=== PATIENT | female | born 1940 | race Caucasian/White ===

== ENCOUNTER 2023-10-25 00:07 | Inpatient (IN) ==
[2023-10-25 02:32] LABS: ABS Basophils 0.1 10^3/uL (0.0-0.1); ABS Lymphocytes 1.3 10^3/uL (1.0-4.8); ABS Monocytes 0.9 10^3/uL (0.0-0.9); ABS Neutrophils 5.4 10^3/uL (1.5-7.6); ABS Nucleated RBC 0.01 10^3/ul; Eosinophil % 11.4 %; Hematocrit 30.9 % (35-45); Hemoglobin 10.8 g/dL (11.5-14.3); Lymphocyte % 15.4 %; Mean Corpuscular Hemoglobin 31.3 pg (27-33); Mean Corpuscular Hgb Conc 34.9 g/dL (31-36); Mean Corpuscular Volume 89.7 fL (80-97); Mean Platelet Volume 5.8 fL (7.5-11.2); Nucleated Red Blood Cells % 0.1 %/100WBC (0.0-0.8); Platelet Count 496 10^3/uL (150-450); Red Blood Count 3.44 10^6/uL (3.63-4.92); Red Cell Distribution Width 12.1 % (12-17); White Blood Count 8.7 10^3/uL (3.8-11.8)
[2023-10-25 03:29] LABS: Calcium 8.8 mg/dL (8.6-10.3); Creatinine, Serum 0.37 mg/dL (0.51-0.95); Potassium 4.4 mmol/L (3.5-5.0); eGFR CKD-EPI 99.4 (>60)
[2023-10-25 03:46] LABS: Magnesium 1.5 mg/dL (1.9-2.7)
[2023-10-25] MEDS: Magnesium Sulfate 2 gm BAG 2 GM/50 ML BAG IVPB ONE ×2 (04:23→19:45)
[2023-10-25] MEDS: NS 0.9% 1000 ml BAG 1,000 ML IV SCH ×4 (04:24→19:55)
[2023-10-25 06:58] LABS: Urine Appearance Clear; Urine Bilirubin Negative (Negative); Urine Blood Negative (Negative); Urine Color Light-Yellow; Urine Glucose Negative (Negative); Urine Ketones 2+ (Negative); Urine Nitrite Negative (Negative); Urine Protein Negative (Negative); Urine Specific Gravity 1.017 (1.002-1.030); Urine Urobilinogen Negative (Negative); Urine pH 5.5 (5.0-8.0)
[2023-10-25 07:29] LABS: Urine Osmo 511 mOsm/kg (150-1150)
[2023-10-25] MEDS: ceFAZolin 1 GM ADVAN 1 GM in NS 0.9% 50 ML 50 ML IVPB SCH (08:12)
[2023-10-25] MEDS: Heparin 5000 UNITS/ML 1 mL VIAL SUBCUT SCH (08:16)
[2023-10-25] MEDS: Acetaminophen IV 1 GM/100ML 1,000 MG/100 ML BAG IV ONE (09:42)
[2023-10-25 10:55] LABS: Calcium 8.2 mg/dL (8.6-10.3); Creatinine, Serum 0.34 mg/dL (0.51-0.95); Magnesium 1.9 mg/dL (1.9-2.7); Potassium 4.1 mmol/L (3.5-5.0); eGFR CKD-EPI 101.4 (>60)
[2023-10-25] MEDS: HYDROmorphone 0.5 MG/0.5 ML SYRINGE IV SLOW PU PRN (13:08)
[2023-10-25 14:54] LABS: Calcium 7.8 mg/dL (8.6-10.3); Creatinine, Serum 0.3 mg/dL (0.51-0.95); eGFR CKD-EPI 104.5 (>60)
[2023-10-25] MEDS: Mometasone 220 MCG MDI INH SCH (15:57)
[2023-10-25 18:55] LABS: Calcium 7.8 mg/dL (8.6-10.3); Creatinine, Serum 0.34 mg/dL (0.51-0.95); Potassium 4.3 mmol/L (3.5-5.0); eGFR CKD-EPI 101.4 (>60)
[2023-10-25] MEDS: HYDROcodone/ACETAMIN 5/325 mg TAB PO PRN (19:42)
[2023-10-25] MEDS: Lactated Ringers 1000 ml BAG 500 ML IV ONE (22:53)
[2023-10-25 23:22] LABS: Calcium 7.7 mg/dL (8.6-10.3); Creatinine, Serum 0.34 mg/dL (0.51-0.95); Potassium 4.3 mmol/L (3.5-5.0); eGFR CKD-EPI 101.4 (>60)
[2023-10-26 00:01] LABS: Urine Osmo 671 mOsm/kg (150-1150)
[2023-10-26 03:01] LABS: Calcium 7.6 mg/dL (8.6-10.3); Creatinine, Serum 0.36 mg/dL (0.51-0.95); Potassium 4.2 mmol/L (3.5-5.0)
[2023-10-26] MEDS: Fluticasone NASAL SPRAY 50MCG 16 gm SPRAY BTL INTRANASAL SCH (03:49)
[2023-10-26] MEDS: ACETAMINOPHEN IV ONE (03:49)
[2023-10-26 05:02] LABS: ABS Eosinophils 0.7 10^3/uL (0.0-0.5); ABS Monocytes 0.7 10^3/uL (0.0-0.9); ABS Neutrophils 3.2 10^3/uL (1.5-7.6); Hematocrit 26.8 % (35-45); Hemoglobin 9.4 g/dL (11.5-14.3); Lymphocyte % 18.2 %; Mean Corpuscular Hemoglobin 31.3 pg (27-33); Mean Corpuscular Hgb Conc 34.9 g/dL (31-36); Mean Corpuscular Volume 89.6 fL (80-97); Mean Platelet Volume 5.8 fL (7.5-11.2); Nucleated Red Blood Cells % 0.1 %/100WBC (0.0-0.8); Platelet Count 432 10^3/uL (150-450); Red Blood Count 2.99 10^6/uL (3.63-4.92); Red Cell Distribution Width 12.3 % (12-17); White Blood Count 5.6 10^3/uL (3.8-11.8)
[2023-10-26 05:50] LABS: Calcium 7.5 mg/dL (8.6-10.3); Creatinine, Serum 0.34 mg/dL (0.51-0.95); Potassium 4.3 mmol/L (3.5-5.0); eGFR CKD-EPI 101.4 (>60)
[2023-10-26 08:55] LABS: Magnesium 2.2 mg/dL (1.9-2.7); Phosphorus 3.1 mg/dL (2.5-5.0)
[2023-10-26] MEDS: HYDROcodone/ACETAMIN 5/325 mg TAB PO SCH (09:17)
[2023-10-26 10:20] LABS: Calcium 7.5 mg/dL (8.6-10.3); Creatinine, Serum 0.34 mg/dL (0.51-0.95); HDL Cholesterol 41.3 mg/dL; Potassium 4.3 mmol/L (3.5-5.0); eGFR CKD-EPI 101.4 (>60)
[2023-10-26 10:30] LABS: TSH Ultra Thyroid Stim Horm 2.55 mcIU/mL (0.34-5.60)
[2023-10-26 14:22] LABS: Calcium 7.5 mg/dL (8.6-10.3); Creatinine, Serum 0.37 mg/dL (0.51-0.95); Potassium 4.5 mmol/L (3.5-5.0); eGFR CKD-EPI 99.4 (>60)
[2023-10-26] MEDS: Heparin 5000 UNITS/ML 1 mL VIAL SUBCUT SCH (16:28)
[2023-10-26 18:45] LABS: Calcium 7.4 mg/dL (8.6-10.3); Creatinine, Serum 0.41 mg/dL (0.51-0.95); Magnesium 1.7 mg/dL (1.9-2.7); Phosphorus 2.4 mg/dL (2.5-5.0); Potassium 4.1 mmol/L (3.5-5.0)
[2023-10-26 19:00] LABS: High Sensitivity Troponin 1 Hr 23 pg/mL (<15)
[2023-10-26 20:10] LABS: High Sensitivity Troponin 3 Hr 19 pg/mL (<15)
[2023-10-26] MEDS: Heparin 5000 UNITS/ML 1 mL VIAL SUBCUT ONE (23:27)
[2023-10-26 23:42] LABS: Calcium 7.9 mg/dL (8.6-10.3); Creatinine, Serum 0.4 mg/dL (0.51-0.95); Potassium 4.5 mmol/L (3.5-5.0); eGFR CKD-EPI 97.5 (>60)
[2023-10-27 05:29] LABS: ABS Eosinophils 0.8 10^3/uL (0.0-0.5); ABS Lymphocytes 1.2 10^3/uL (1.0-4.8); ABS Monocytes 0.7 10^3/uL (0.0-0.9); ABS Neutrophils 3.3 10^3/uL (1.5-7.6); Eosinophil % 13.2 %; Hematocrit 28.2 % (35-45); Lymphocyte % 19.7 %; Mean Corpuscular Hemoglobin 31.8 pg (27-33); Mean Corpuscular Hgb Conc 35.4 g/dL (31-36); Mean Corpuscular Volume 89.8 fL (80-97); Nucleated Red Blood Cells % 0.1 %/100WBC (0.0-0.8); Platelet Count 475 10^3/uL (150-450); Red Blood Count 3.14 10^6/uL (3.63-4.92); Red Cell Distribution Width 12.3 % (12-17)
[2023-10-27 06:11] LABS: Calcium 7.6 mg/dL (8.6-10.3); Creatinine, Serum 0.37 mg/dL (0.51-0.95); Potassium 4.5 mmol/L (3.5-5.0); eGFR CKD-EPI 99.4 (>60)
[2023-10-27 08:18] LABS: Magnesium 1.7 mg/dL (1.9-2.7); Phosphorus 2.5 mg/dL (2.5-5.0)
[2023-10-27] MEDS: Potassium EFFERVES 25 meq TAB PO SCH (08:20)
[2023-10-27] MEDS: Magnesium Sulfate 2 gm BAG 2 GM/50 ML BAG IVPB ONE (08:23)
[2023-10-27] MEDS: Ondansetron 4 mg VIAL 2 MG/ML 2 ml VIAL IV PRN (10:19)
[2023-10-27 10:43] LABS: Calcium 7.7 mg/dL (8.6-10.3); Creatinine, Serum 0.35 mg/dL (0.51-0.95); Potassium 4.4 mmol/L (3.5-5.0); eGFR CKD-EPI 100.7 (>60)
[2023-10-27] MEDS ORDERED: HYDROcodone/ACETAMIN 5/325 mg TAB PO PRN (12:06)
[2023-10-27] MEDS: Heparin 5000 UNITS/ML 1 mL VIAL SUBCUT SCH (12:27)
[2023-10-27] MEDS ORDERED: Vancomycin per Pharmacy 1 EA NOTE FOLLOW UP PRN (16:28)
[2023-10-27] MEDS: Acetaminophen IV 1 GM/100ML 1,000 MG/100 ML BAG IV PRN (16:32)
[2023-10-27 17:06] LABS: Albumin 2.4 g/dL (3.2-5.2); Albumin/Globulin Ratio 1.1 (1-3); Direct Bilirubin 0.1 mg/dL (0.03-0.18); Globulin 2.1 g/dL (2-4); Indirect Bilirubin 0.3 mg/dL (0.3-1.0); Total Bilirubin 0.4 mg/dL (0.2-1.0); Total Protein 4.5 g/dL (6.4-8.9)
[2023-10-27 17:35] LABS: Urine Appearance Clear; Urine Bilirubin Negative (Negative); Urine Blood 2+ (Negative); Urine Color Light-Yellow; Urine Glucose Negative (Negative); Urine Ketones 2+ (Negative); Urine Nitrite Negative (Negative); Urine Protein Trace (Negative); Urine Specific Gravity 1.021 (1.002-1.030); Urine Urobilinogen Negative (Negative); Urine pH 5.5 (5.0-8.0)
[2023-10-27 17:38] LABS: Urine Bacteria Absent /HPF (Absent); Urine Red Blood Cell 3+(>10/hpf) /HPF (0-Trace); Urine Squamous Epithelial Cell Present /HPF (Absent); Urine White Blood Cell Trace(0-5/hpf) /HPF (0-Trace)
[2023-10-27] MEDS: Cefepime 1 GM in Dextrose 1 GM/50 ML BAG IV SCH (17:52)
[2023-10-27] MEDS: Vancomycin 1,000 MG in NS 0.9% 250 ml 250 ML IVPB ONE (17:57)
[2023-10-27] MEDS ORDERED: Cefepime ADVAN 1 GM in NS 0.9% 50 ML 50 ML IVPB SCH (18:00)
[2023-10-27] MEDS: Heparin 5000 UNITS/ML 1 mL VIAL SUBCUT ONE (20:15)
[2023-10-27 21:02] LABS: Albumin 2.4 g/dL (3.2-5.2); Albumin/Globulin Ratio 1.1 (1-3); Calcium 7.8 mg/dL (8.6-10.3); Creatinine, Serum 0.34 mg/dL (0.51-0.95); Globulin 2.2 g/dL (2-4); Potassium 4.6 mmol/L (3.5-5.0); Total Bilirubin 0.4 mg/dL (0.2-1.0); Total Protein 4.6 g/dL (6.4-8.9); eGFR CKD-EPI 101.4 (>60)
[2023-10-27] MEDS: Vancomycin 1,500 MG in NS 0.9% 250 ml 250 ML IVPB SCH (21:25)
[2023-10-28 06:30] LABS: ABS Eosinophils 0.9 10^3/uL (0.0-0.5); ABS Monocytes 0.8 10^3/uL (0.0-0.9); Eosinophil % 13.9 %; Hematocrit 29.3 % (35-45); Hemoglobin 10.2 g/dL (11.5-14.3); Lymphocyte % 15.1 %; Mean Corpuscular Hemoglobin 31.3 pg (27-33); Mean Corpuscular Hgb Conc 34.7 g/dL (31-36); Mean Corpuscular Volume 90.2 fL (80-97); Mean Platelet Volume 5.6 fL (7.5-11.2); Nucleated Red Blood Cells % 0.1 %/100WBC (0.0-0.8); Platelet Count 496 10^3/uL (150-450); Red Blood Count 3.25 10^6/uL (3.63-4.92); White Blood Count 6.8 10^3/uL (3.8-11.8)
[2023-10-28 07:55] LABS: Creatinine, Serum 0.35 mg/dL (0.51-0.95); Magnesium 1.6 mg/dL (1.9-2.7); Phosphorus 2.3 mg/dL (2.5-5.0); Potassium 4.6 mmol/L (3.5-5.0); Vancomycin Trough 5.7 mcg/mL; eGFR CKD-EPI 100.7 (>60)
[2023-10-28] MEDS: Vancomycin 1,500 MG in NS 0.9% 250 ml 250 ML IVPB SCH (08:26)
[2023-10-28] MEDS: Magnesium Sulfate 2 gm BAG 2 GM/50 ML BAG IV ONE (10:10)
[2023-10-28 10:15] LABS: C Reactive Protein 163.02 mg/L (<8.01)
[2023-10-28 10:55] LABS: Erythrocyte Sed Rate 70 mm/Hr (0-29)
[2023-10-28] MEDS: Pantoprazole VIAL 40 MG VIAL IV SCH (12:19)
[2023-10-28 13:55] LABS: Body Fluid Appearance Cloudy; Body Fluid Color Amber; Body Fluid Source Synovial Fluid
[2023-10-28 14:24] LABS: Body Fluid Total Nucleated 793 /mcL
[2023-10-28 14:54] LABS: Creatinine, Serum 0.3 mg/dL (0.51-0.95); Potassium 4.4 mmol/L (3.5-5.0); eGFR CKD-EPI 104.5 (>60)
[2023-10-28 14:57] LABS: Body Fluid Mono 131 %
[2023-10-28] MEDS: Enoxaparin 40 MG/0.4 ML SYR SUBCUT SCH (15:28)
[2023-10-28 15:46] LABS: Body Fluid Total Cells Counted 200
[2023-10-28] MEDS ORDERED: Tocilizumab 200 MG/10 ML 10 ml VIAL SCH (20:00)
[2023-10-29 05:38] LABS: ABS Eosinophils 1.3 10^3/uL (0.0-0.5); ABS Monocytes 0.6 10^3/uL (0.0-0.9); ABS Neutrophils 2.6 10^3/uL (1.5-7.6); Hemoglobin 10.2 g/dL (11.5-14.3); Lymphocyte % 17.5 %; Mean Corpuscular Hemoglobin 31.5 pg (27-33); Mean Corpuscular Volume 90.2 fL (80-97); Mean Platelet Volume 5.9 fL (7.5-11.2); Platelet Count 512 10^3/uL (150-450); Red Blood Count 3.22 10^6/uL (3.63-4.92); Red Cell Distribution Width 12.2 % (12-17); White Blood Count 5.4 10^3/uL (3.8-11.8)
[2023-10-29 05:52] LABS: Calcium 8.4 mg/dL (8.6-10.3); Creatinine, Serum 0.3 mg/dL (0.51-0.95); Magnesium 1.6 mg/dL (1.9-2.7); Potassium 4.4 mmol/L (3.5-5.0); Vancomycin Trough 14.1 mcg/mL; eGFR CKD-EPI 104.5 (>60)
[2023-10-29] MEDS: Magnesium Sulfate 2 gm BAG 2 GM/50 ML BAG IVPB ONE (08:03)
[2023-10-29] MEDS: Magnesium Sulfate IV 1GM/100ML 1 GM/100 ML BAG IV ONE (09:35)
[2023-10-29 16:25] LABS: Anion Gap 4 mmol/L (2-16); Blood Urea Nitrogen 7 mg/dL (6-24); CO2 Carbon Dioxide 24 mmol/L (22-32); Calcium 8.3 mg/dL (8.6-10.3); Chloride 98 mmol/L (101-111); Creatinine, Serum < 0.30 mg/dL (0.51-0.95); Glucose 97 mg/dL (70-100); Potassium 4.5 mmol/L (3.5-5.0); Sodium 126 mmol/L (135-145); eGFR CKD-EPI 104.5 (>60)
[2023-10-30 05:46] LABS: ABS Eosinophils 1.4 10^3/uL (0.0-0.5); ABS Lymphocytes 1.2 10^3/uL (1.0-4.8); ABS Monocytes 0.7 10^3/uL (0.0-0.9); ABS Neutrophils 3.4 10^3/uL (1.5-7.6); ABS Nucleated RBC 0.01 10^3/ul; Eosinophil % 20.8 %; Hemoglobin 10.9 g/dL (11.5-14.3); Mean Corpuscular Hemoglobin 31.4 pg (27-33); Mean Corpuscular Hgb Conc 35.3 g/dL (31-36); Mean Corpuscular Volume 89.1 fL (80-97); Mean Platelet Volume 5.9 fL (7.5-11.2); Nucleated Red Blood Cells % 0.1 %/100WBC (0.0-0.8); Platelet Count 607 10^3/uL (150-450); Red Blood Count 3.48 10^6/uL (3.63-4.92); Red Cell Distribution Width 12.1 % (12-17); White Blood Count 6.7 10^3/uL (3.8-11.8)
[2023-10-30] MEDS: Vancomycin Trough Check NOTE FOLLOW UP ONE (06:09)
[2023-10-30 06:25] LABS: Calcium 8.2 mg/dL (8.6-10.3); Creatinine, Serum 0.32 mg/dL (0.51-0.95); Magnesium 1.6 mg/dL (1.9-2.7); Potassium 4.2 mmol/L (3.5-5.0); eGFR CKD-EPI 102.9 (>60)
[2023-10-30] MEDS: Magnesium Sulf 4 GM/100 ML IV 4,000 MG/100 ML BAG IVPB ONE (08:38)
[2023-10-30] MEDS: NS 0.9% 1000 ml BAG 1,000 ML IV ONE (15:39)
[2023-10-30] MEDS: ceFAZolin 1 GM in Dextrose 1 GM/50 ML BAG IVPB SCH (16:11)
[2023-10-30] MEDS: Ampicillin IV 2 GM in NS 0.9% 100 ml BAG 100 ML IVPB ONE (16:44)
[2023-10-30] MEDS ORDERED: Ampicillin IV 2 GM in NS 0.9% 100 ml BAG 100 ML IVPB SCH (17:00)
[2023-10-30] MEDS ORDERED: Vancomycin per Pharmacy 1 EA NOTE FOLLOW UP SCH (17:00)
[2023-10-30] MEDS: cefTRIAXone 2 gm/50 mL D5W 2 GM/50 ML BAG IV ONE (17:12)
[2023-10-30] MEDS: Ampicillin ADVAN 2 GM in NS 0.9% 100 ML 100 ML IVPB SCH (17:20)
[2023-10-30 17:27] LABS: Urine Appearance Extra Turbid; Urine Bilirubin Negative (Negative); Urine Blood Negative (Negative); Urine Glucose Negative (Negative); Urine Ketones 2+ (Negative); Urine Nitrite Negative (Negative); Urine Protein Trace (Negative); Urine Specific Gravity 1.015 (1.002-1.030); Urine Urobilinogen Negative (Negative); Urine pH 5.5 (5.0-8.0)
[2023-10-30] MEDS: Acyclovir IV 520 MG in NS 0.9% 100 ml BAG 100 ML IVPB SCH (17:36)
[2023-10-30] MEDS: cefTRIAXone 2 gm/50 mL D5W 2 GM/50 ML BAG IV SCH (18:19)
[2023-10-30] MEDS: Vancomycin 1,500 MG in NS 0.9% 250 ml 250 ML IVPB SCH (18:27)
[2023-10-30 19:13] LABS: Urine Color Light-Yellow
[2023-10-31] MEDS: Albuterol/Ipratropium NEB.SOL (2.5/0.5 MG) 3 ML NEB.SOLN INH ONE (01:05)
[2023-10-31 06:48] LABS: ABS Eosinophils 1.5 10^3/uL (0.0-0.5); ABS Lymphocytes 0.9 10^3/uL (1.0-4.8); ABS Monocytes 0.7 10^3/uL (0.0-0.9); ABS Neutrophils 3.3 10^3/uL (1.5-7.6); Eosinophil % 23.4 %; Hematocrit 28.8 % (35-45); Hemoglobin 9.9 g/dL (11.5-14.3); Lymphocyte % 14.3 %; Mean Corpuscular Hemoglobin 30.6 pg (27-33); Mean Corpuscular Hgb Conc 34.3 g/dL (31-36); Mean Corpuscular Volume 89.3 fL (80-97); Mean Platelet Volume 5.9 fL (7.5-11.2); Platelet Count 546 10^3/uL (150-450); Red Blood Count 3.23 10^6/uL (3.63-4.92); Red Cell Distribution Width 12.2 % (12-17); White Blood Count 6.4 10^3/uL (3.8-11.8)
[2023-10-31 08:34] LABS: Albumin 2.3 g/dL (3.2-5.2); Albumin/Globulin Ratio 1.2 (1-3); Calcium 8.1 mg/dL (8.6-10.3); Creatinine, Serum 0.36 mg/dL (0.51-0.95); Total Bilirubin 0.4 mg/dL (0.2-1.0); Total Protein 4.3 g/dL (6.4-8.9)
[2023-10-31 09:01] LABS: Body Fluid Source Cerebral Spinal
[2023-10-31 09:20] LABS: CSF Glucose 58 mg/dL (40-70)
[2023-10-31 09:36] LABS: CSF Body Fluid WBC 0 /mcL
[2023-10-31 10:09] LABS: Body Fluid Appearance Clear; Body Fluid Color Colorless; Body Fluid Mono 8 %; Body Fluid Total Cells Counted 13
[2023-10-31 10:10] LABS: CSF Tube # 4
[2023-10-31] MEDS: Senna TAB 8.6 mg TAB PO PRN (12:32)
[2023-10-31] MEDS: Polyethylene Glycol 3350 17 GM PACKET PO PRN (12:32)
[2023-10-31] MEDS: ceFAZolin 2 GM PREMIX 2 GM/50 ML BAG IV SCH (13:49)
[2023-10-31] MEDS ORDERED: ceFAZolin 2 GM in NS PREMIX 2 GM/100 ML BAG IVPB SCH (14:00)
[2023-10-31] MEDS: Benzocaine/Menthol LOZ PO PRN (23:19)
[2023-11-01] MEDS: Albuterol/Ipratropium NEB.SOL (2.5/0.5 MG) 3 ML NEB.SOLN INH ONE (03:07)
[2023-11-01] MEDS ORDERED: Vancomycin Trough Check NOTE FOLLOW UP ONE ×2 (06:00)
[2023-11-01 06:33] LABS: ABS Eosinophils 1.4 10^3/uL (0.0-0.5); ABS Monocytes 0.7 10^3/uL (0.0-0.9); ABS Neutrophils 3.2 10^3/uL (1.5-7.6); Eosinophil % 22.6 %; Hematocrit 27.7 % (35-45); Hemoglobin 9.5 g/dL (11.5-14.3); Lymphocyte % 15.4 %; Mean Corpuscular Hemoglobin 31.1 pg (27-33); Mean Corpuscular Hgb Conc 34.5 g/dL (31-36); Mean Corpuscular Volume 90.2 fL (80-97); Platelet Count 530 10^3/uL (150-450); Red Blood Count 3.07 10^6/uL (3.63-4.92); Red Cell Distribution Width 12.3 % (12-17); White Blood Count 6.4 10^3/uL (3.8-11.8)
[2023-11-01 06:55] LABS: Calcium 8.4 mg/dL (8.6-10.3); Creatinine, Serum 0.36 mg/dL (0.51-0.95)
[2023-11-01] MEDS: Furosemide 40 mg/4 ml IV VIAL IV SLOW PU ONE (12:17)
[2023-11-02] MEDS: Albuterol/Ipratropium NEB.SOL (2.5/0.5 MG) 3 ML NEB.SOLN INH ONE (06:56)
[2023-11-02 09:09] LABS: Calcium 8.8 mg/dL (8.6-10.3); Creatinine, Serum 0.39 mg/dL (0.51-0.95); Potassium 3.7 mmol/L (3.5-5.0); eGFR CKD-EPI 98.1 (>60)
[2023-11-02] MEDS: KCL 20 MEQ/100 ML IVPREMIX 20 MEQ/100 ML BAG IV SCH (12:30)
[2023-11-02] MEDS: Furosemide 40 mg/4 ml IV VIAL IV ONE (12:33)
[2023-11-02 14:10] LABS: Magnesium 1.4 mg/dL (1.9-2.7)
[2023-11-02 15:17] LABS: CSF VDRL Negative (Negative)
[2023-11-02] MEDS: Magnesium Sulfate 2 gm BAG 2 GM/50 ML BAG IVPB ONE (16:44)
[2023-11-02 18:09] LABS: HSV 1 PCR, CSF Negative (Negative); HSV 2 PCR, CSF Negative (Negative)
[2023-11-02 20:05] LABS: Calcium 8.8 mg/dL (8.6-10.3); Creatinine, Serum 0.44 mg/dL (0.51-0.95); Magnesium 1.9 mg/dL (1.9-2.7); Potassium 4.2 mmol/L (3.5-5.0); eGFR CKD-EPI 95.3 (>60)
[2023-11-02] MEDS: Albuterol HFA INHALER 8 gm MDI INH PRN (21:58)
[2023-11-03] MEDS: Magnesium Sulfate IV 1GM/100ML 1 GM/100 ML BAG IV ONE (00:23)
[2023-11-03] MEDS: ceFAZolin 2 GM PREMIX 2 GM/50 ML BAG IV SCH (01:08)
[2023-11-03] MEDS: Acetaminophen IV 1 GM/100ML 1,000 MG/100 ML BAG IV PRN (06:06)
[2023-11-03 06:31] LABS: Hematocrit 28.1 % (35-45); Hemoglobin 9.7 g/dL (11.5-14.3); Mean Corpuscular Hgb Conc 34.4 g/dL (31-36); Mean Corpuscular Volume 89.9 fL (80-97); Mean Platelet Volume 5.7 fL (7.5-11.2); Platelet Count 559 10^3/uL (150-450); Red Blood Count 3.13 10^6/uL (3.63-4.92); Red Cell Distribution Width 12.4 % (12-17)
[2023-11-03 07:17] LABS: Calcium 8.8 mg/dL (8.6-10.3); Creatinine, Serum 0.36 mg/dL (0.51-0.95); Magnesium 1.8 mg/dL (1.9-2.7); Phosphorus 3.4 mg/dL (2.5-5.0); Potassium 4.2 mmol/L (3.5-5.0)
[2023-11-03] MEDS: Furosemide 40 mg/4 ml IV VIAL IV SLOW PU ONE (08:25)
[2023-11-03] MEDS: Magnesium Sulfate 2 gm BAG 2 GM/50 ML BAG IVPB ONE (08:29)
[2023-11-03 08:50] LABS: B. burgdorferi PCR Negative (Negative); B. garinii/B. afzellii PCR Negative (Negative)
[2023-11-03 10:26] LABS: C Reactive Protein 123.49 mg/L (<8.01)
[2023-11-03] MEDS: Lidocaine 1% MPF 5 ML VIAL INJ ONE (10:27)
[2023-11-03 16:11] LABS: B. burgdorferi PCR Negative (Negative); B. garinii/B. afzellii PCR Negative (Negative); Lyme Disease Source CSF
[2023-11-03] MEDS: Iohexol 300 (CONTRAST) 10 ML SDV IV ONE (16:45)
[2023-11-03 18:53] LABS: Calcium 8.8 mg/dL (8.6-10.3); Creatinine, Serum 0.4 mg/dL (0.51-0.95); Magnesium 1.9 mg/dL (1.9-2.7); Potassium 4.1 mmol/L (3.5-5.0); eGFR CKD-EPI 97.5 (>60)
[2023-11-03 20:17] LABS: CSF West Nile Virus IgG Ab Negative (Negative); CSF West Nile Virus IgM Ab Negative (Negative)
[2023-11-03] MEDS: Senna TAB 8.6 mg TAB PO SCH (22:00)
[2023-11-04 05:09] LABS: Calcium 8.5 mg/dL (8.6-10.3); Creatinine, Serum 0.43 mg/dL (0.51-0.95); Magnesium 1.8 mg/dL (1.9-2.7); Phosphorus 3.2 mg/dL (2.5-5.0); Potassium 4.1 mmol/L (3.5-5.0); eGFR CKD-EPI 95.8 (>60)
[2023-11-04 05:23] LABS: ABS Eosinophils 1.7 10^3/uL (0.0-0.5); ABS Lymphocytes 1.2 10^3/uL (1.0-4.8); ABS Monocytes 1.1 10^3/uL (0.0-0.9); ABS Neutrophils 4.7 10^3/uL (1.5-7.6); Eosinophil % 19.7 %; Hematocrit 26.1 % (35-45); Mean Corpuscular Hemoglobin 31.2 pg (27-33); Mean Corpuscular Hgb Conc 34.6 g/dL (31-36); Mean Corpuscular Volume 90.1 fL (80-97); Platelet Count 556 10^3/uL (150-450); Red Blood Count 2.89 10^6/uL (3.63-4.92); Red Cell Distribution Width 12.4 % (12-17); White Blood Count 8.8 10^3/uL (3.8-11.8)
[2023-11-04] MEDS: Polyethylene Glycol 3350 17 GM PACKET PO SCH (08:47)
[2023-11-04] MEDS: NS 0.9% 250 ml 250 ML IV ONE (09:27)
[2023-11-04] MEDS: methylPREDNISolone SOD SUCC 40 mg/ml 1 ml VIAL IV ONE (11:15)
[2023-11-04] MEDS: Albuterol/Ipratropium NEB.SOL (2.5/0.5 MG) 3 ML NEB.SOLN INH ONE (12:18)
[2023-11-04 12:22] LABS: PCO2 Arterial 50 mmHg (35-45); PO2 Arterial 67 mmHg (80-100)
[2023-11-04] MEDS: Furosemide 40 mg/4 ml IV VIAL IV ONE (12:42)
[2023-11-04] MEDS: cefTRIAXone 1 gm/50 mL D5W 1 GM/50 ML BAG IV SCH (12:42)
[2023-11-04] MEDS ORDERED: Albuterol/Ipratropium NEB.SOL (2.5/0.5 MG) 3 ML NEB.SOLN INH PRN (12:47)
[2023-11-04] MEDS: Azithromycin 500 mg/250 ml NS 500 MG/250 ML BAG IVPB SCH (13:45)
[2023-11-04 14:19] LABS: High Sensitivity Troponin 1 Hr 13 pg/mL (<15)
[2023-11-04] MEDS ORDERED: Albuterol/Ipratropium NEB.SOL (2.5/0.5 MG) 3 ML NEB.SOLN INH SCH (15:00)
[2023-11-04] MEDS: Albuterol HFA INHALER 8 gm MDI INH SCH (15:40)
[2023-11-04] MEDS: methylPREDNISolone SOD SUCC 40 mg/ml 1 ml VIAL IV SCH (22:24)
[2023-11-05] MEDS: Albuterol HFA INHALER 8 gm MDI INH SCH (20:13)
[2023-11-05] MEDS ORDERED: methylPREDNISolone SOD SUCC 40 mg/ml 1 ml VIAL IV SCH (21:00)
[2023-11-05] MEDS: methylPREDNISolone SOD SUCC 40 mg/ml 1 ml VIAL IV SCH (21:15)
[2023-11-06 04:24] LABS: ABS Lymphocytes 0.8 10^3/uL (1.0-4.8); ABS Monocytes 0.4 10^3/uL (0.0-0.9); ABS Neutrophils 8.7 10^3/uL (1.5-7.6); Hematocrit 26.8 % (35-45); Hemoglobin 9.3 g/dL (11.5-14.3); Lymphocyte % 8.2 %; Mean Corpuscular Hemoglobin 30.8 pg (27-33); Mean Corpuscular Hgb Conc 34.7 g/dL (31-36); Mean Corpuscular Volume 88.6 fL (80-97); Mean Platelet Volume 5.8 fL (7.5-11.2); Platelet Count 635 10^3/uL (150-450); Red Blood Count 3.02 10^6/uL (3.63-4.92); Red Cell Distribution Width 12.5 % (12-17); White Blood Count 9.9 10^3/uL (3.8-11.8)
[2023-11-06 05:03] LABS: Calcium 8.8 mg/dL (8.6-10.3); Creatinine, Serum 0.39 mg/dL (0.51-0.95); Magnesium 1.9 mg/dL (1.9-2.7); Phosphorus 2.9 mg/dL (2.5-5.0); eGFR CKD-EPI 98.1 (>60)
[2023-11-06] MEDS ORDERED: Ondansetron ODT 4 mg TAB 4 MG TAB SL PRN (07:38)
[2023-11-06 15:55] LABS: Albumin, CSF 14.5 mg/dL (<=27.0); Albumin, S 2200 mg/dL; IgG Index, CSF 0.63 (<=0.85); IgG, CSF 2.8 mg/dL (<=8.1); IgG, S 656 mg/dL (767 - 1590); IgG/Albumin, CSF 0.19 (<=0.21); Synthesis Rate, CSF 3.43 mg/24 h (<=12)
[2023-11-06] MEDS: methylPREDNISolone SOD SUCC 40 mg/ml 1 ml VIAL IV SCH (20:32)
[2023-11-07 05:51] LABS: Calcium 9.1 mg/dL (8.6-10.3); Creatinine, Serum 0.4 mg/dL (0.51-0.95); Magnesium 1.9 mg/dL (1.9-2.7); Phosphorus 2.6 mg/dL (2.5-5.0); Potassium 4.1 mmol/L (3.5-5.0); eGFR CKD-EPI 97.5 (>60)
[2023-11-07 06:04] LABS: ABS Lymphocytes 0.7 10^3/uL (1.0-4.8); ABS Neutrophils 8.9 10^3/uL (1.5-7.6); Eosinophil % 0.1 %; Hematocrit 28.1 % (35-45); Hemoglobin 9.7 g/dL (11.5-14.3); Mean Corpuscular Hemoglobin 31.1 pg (27-33); Mean Corpuscular Hgb Conc 34.6 g/dL (31-36); Mean Corpuscular Volume 89.8 fL (80-97); Mean Platelet Volume 6.1 fL (7.5-11.2); Platelet Count 657 10^3/uL (150-450); Red Blood Count 3.13 10^6/uL (3.63-4.92); Red Cell Distribution Width 12.2 % (12-17); White Blood Count 10.7 10^3/uL (3.8-11.8)
[2023-11-07] MEDS: Enoxaparin 40 MG/0.4 ML SYR SUBCUT SCH (11:34)
[2023-11-08 04:57] LABS: Hematocrit 29.8 % (35-45); Hemoglobin 10.1 g/dL (11.5-14.3); Mean Corpuscular Hemoglobin 30.4 pg (27-33); Mean Corpuscular Hgb Conc 33.8 g/dL (31-36); Mean Corpuscular Volume 89.9 fL (80-97); Mean Platelet Volume 5.8 fL (7.5-11.2); Platelet Count 693 10^3/uL (150-450); Red Blood Count 3.31 10^6/uL (3.63-4.92); Red Cell Distribution Width 12.7 % (12-17); White Blood Count 11.5 10^3/uL (3.8-11.8)
[2023-11-08 05:31] LABS: ABS Eosinophils 0.2 10^3/uL (0.0-0.5); ABS Lymphocytes 1.8 10^3/uL (1.0-4.8); ABS Monocytes 1.5 10^3/uL (0.0-0.9); ABS Nucleated RBC 0.01 10^3/ul; Eosinophil % 1.4 %; Lymphocyte % 15.7 %; Nucleated Red Blood Cells % 0.1 %/100WBC (0.0-0.8)
[2023-11-08 05:52] LABS: Calcium 9.1 mg/dL (8.6-10.3); Creatinine, Serum 0.42 mg/dL (0.51-0.95); Magnesium 1.8 mg/dL (1.9-2.7); Phosphorus 1.6 mg/dL (2.5-5.0); Potassium 3.7 mmol/L (3.5-5.0); eGFR CKD-EPI 96.4 (>60)
[2023-11-08] MEDS: Magnesium Sulfate 2 gm BAG 2 GM/50 ML BAG IVPB ONE (09:14)
[2023-11-08 13:24] LABS: Rapid COVID-19 Molecular Undetected (Undetected)
[2023-11-08] MEDS: Potassium Phosphate IV 15 MMOL in NS 0.9% 250 ml 250 ML IVPB ONE (23:09)
[2023-11-09 05:42] LABS: Calcium 8.5 mg/dL (8.6-10.3); Creatinine, Serum 0.47 mg/dL (0.51-0.95); Magnesium 2.2 mg/dL (1.9-2.7); Phosphorus 3.2 mg/dL (2.5-5.0); Potassium 4.2 mmol/L (3.5-5.0); eGFR CKD-EPI 93.8 (>60)
[2023-11-09] MEDS ORDERED: Albuterol HFA INHALER 8 gm MDI INH PRN (08:04)
[2023-11-09] MEDS ORDERED: Fluticasone HFA 220 mcg(NF) MDI INH SCH (09:00)
[2023-11-09] MEDS: Albuterol HFA INHALER 8 gm MDI INH SCH (09:32)
[2023-11-09 10:03] VITALS: BP 141/80
[2023-11-09] MEDS: Fluticasone NASAL SPRAY 50MCG 16 gm SPRAY BTL INTRANASAL SCH (10:31)
== END 2023-11-09 11:20 | DRG 640 ==
LOC: SUATTDRO 01:22 → ICU 01:22 → MEDTELE 10-29 06:35
PROVIDERS: ADMIT Internal Medicine; ATTEND Hospitalist

== ENCOUNTER 2024-05-09 18:16 | Inpatient (IN) ==
[2024-05-09] MEDS: Norepinephrine 4 MG/250mL D5W 4,000 MCG/250 ML BAG IV SCH (20:20)
[2024-05-09 21:33] LABS: ABS Eosinophils 0.1 10^3/uL (0.0-0.5); ABS Lymphocytes 0.3 10^3/uL (1.0-4.8); ABS Monocytes 0.6 10^3/uL (0.0-0.9); ABS Neutrophils 6.6 10^3/uL (1.5-7.6); Eosinophil % 1.3 %; Hematocrit 36.7 % (35-45); Hemoglobin 12.6 g/dL (11.5-14.3); Lymphocyte % 4.5 %; Mean Corpuscular Hemoglobin 32.3 pg (27-33); Mean Corpuscular Hgb Conc 34.4 g/dL (31-36); Mean Platelet Volume 6.5 fL (7.5-11.2); Platelet Count 307 10^3/uL (150-450); Red Blood Count 3.91 10^6/uL (3.63-4.92); Red Cell Distribution Width 13.5 % (12-17); White Blood Count 7.6 10^3/uL (3.8-11.8)
[2024-05-09 22:08] LABS: Albumin 3.2 g/dL (3.2-5.2); Albumin/Globulin Ratio 1.5 (1-3); Calcium 8.2 mg/dL (8.6-10.3); Creatinine, Serum 0.74 mg/dL (0.51-0.95); Globulin 2.2 g/dL (2-4); Magnesium 2.1 mg/dL (1.9-2.7); Potassium 3.6 mmol/L (3.5-5.0); Total Bilirubin 0.7 mg/dL (0.2-1.0); Total Protein 5.4 g/dL (6.4-8.9); eGFR CKD-EPI 79.7 (>60)
[2024-05-09] MEDS: Albuterol HFA INHALER 8 gm MDI INH PRN (22:38)
[2024-05-10 03:31] LABS: C Reactive Protein 103.82 mg/L (<8.01)
[2024-05-10 05:17] LABS: ABS Eosinophils 0.2 10^3/uL (0.0-0.5); ABS Lymphocytes 0.8 10^3/uL (1.0-4.8); ABS Monocytes 0.5 10^3/uL (0.0-0.9); ABS Neutrophils 4.8 10^3/uL (1.5-7.6); Eosinophil % 3.3 %; Hematocrit 33.6 % (35-45); Hemoglobin 11.6 g/dL (11.5-14.3); Mean Corpuscular Hemoglobin 32.2 pg (27-33); Mean Corpuscular Hgb Conc 34.6 g/dL (31-36); Mean Corpuscular Volume 93.2 fL (80-97); Mean Platelet Volume 6.9 fL (7.5-11.2); Platelet Count 277 10^3/uL (150-450); Red Cell Distribution Width 13.6 % (12-17); White Blood Count 6.2 10^3/uL (3.8-11.8)
[2024-05-10] MEDS ORDERED: Sulfur Hexaflouride MICROSPHR 25 MG VIAL IV PRN (06:34)
[2024-05-10 06:40] LABS: Calcium 8.3 mg/dL (8.6-10.3); Creatinine, Serum 0.69 mg/dL (0.51-0.95); Potassium 3.7 mmol/L (3.5-5.0); eGFR CKD-EPI 85.5 (>60)
[2024-05-10] MEDS: Potassium Chlor 20 meq TAB.ER PO ONE (08:58)
[2024-05-10] MEDS: Enoxaparin 40 MG/0.4 ML SYR SUBCUT SCH (08:59)
[2024-05-10] MEDS ORDERED: Albuterol HFA INHALER 8 gm MDI INH SCH (09:00)
[2024-05-10] MEDS: Sulfur Hexaflouride MICROSPHR 25 MG VIAL IV PRN (10:05)
[2024-05-10] MEDS: Mometasone 220 MCG MDI INH SCH (14:02)
[2024-05-11 04:32] LABS: ABS Eosinophils 0.1 10^3/uL (0.0-0.5); ABS Lymphocytes 0.7 10^3/uL (1.0-4.8); ABS Monocytes 0.3 10^3/uL (0.0-0.9); ABS Neutrophils 3.9 10^3/uL (1.5-7.6); Eosinophil % 1.8 %; Hematocrit 33.8 % (35-45); Hemoglobin 11.8 g/dL (11.5-14.3); Lymphocyte % 13.3 %; Mean Corpuscular Hemoglobin 33.1 pg (27-33); Mean Corpuscular Volume 94.5 fL (80-97); Mean Platelet Volume 6.7 fL (7.5-11.2); Platelet Count 261 10^3/uL (150-450); Red Blood Count 3.58 10^6/uL (3.63-4.92); Red Cell Distribution Width 13.6 % (12-17)
[2024-05-11 05:09] LABS: Calcium 8.5 mg/dL (8.6-10.3); Creatinine, Serum 0.72 mg/dL (0.51-0.95); Potassium 4.1 mmol/L (3.5-5.0); eGFR CKD-EPI 82.4 (>60)
[2024-05-11 12:49] VITALS: BP 168/101
== END 2024-05-11 14:46 | disposition home or self-care (01) | DRG 643 ==
LOC: ICU 20:33
PROVIDERS: ADMIT Internal Medicine Critical Care Medicine; ATTEND Student in an Organized Health Care Education/Training Program